=== PATIENT | female | born 1975 | race Caucasian/White ===

== ENCOUNTER 2017-10-18 12:59 | Emergency (ER) | payer OTHER ==
[~2017-10-18] VITALS: Ht 182.9 cm; Wt 72.6 kg
[2017-10-18] MEDS ORDERED: IBUPROFEN600 MG PO (14:13)
== END 2017-10-18 14:36 | disposition home or self-care (01) ==
LOC: ED 12:59
DX: S90.32XA Contusion of left foot, initial encounter (principal); S80.02XA Contusion of left knee, initial encounter; V43.52XA Car driver injured in collision with other type car in traffic accident, initial encounter
CPT/HCPCS: 73560; 73630; 99283

== ENCOUNTER 2020-04-15 19:54 | Emergency (ER) | payer OTHER ==
[~2020-04-15] VITALS: Ht 182.9 cm; Wt 79.8 kg
[~2020-04-15 19:54] MED LIST: IBUPROFEN600 MG PO
--- OUTSIDE RECORDS SUMMARY | 2020-04-15 19:56 | XMS ---
PreManage Notification: PRISCILLA CARRERO Security [employer] Events No recent Security Events currently on file CRITERIA MET - Group Notification CARE PROVIDERS There are no care providers on record at this time. Kelly has no Care Guidelines for this patient. Teena VISIT COUNT (12 MO.) 1 JOHNY Bae TOTAL 1 NOTE: Visits indicate total known visits. ED/UCC VISIT TRACKING (12 MO.) 04/15/2020 19:55 JOHNY Jacobs [place] TYPE: Emergency COMPLAINT: - POSS BROKEN FINGER INPATIENT VISIT TRACKING (12 MO.) No inpatient visits to display in this time frame [email or web address]
[2020-04-15] MEDS ORDERED: NORCO 5-325 TA1 EACH PO (20:36)
== END 2020-04-15 21:07 | disposition home or self-care (01) ==
LOC: ED 19:54
PROC: 0RSWXZZ Reposition Right Finger Phalangeal Joint, External Approach (ICD-10-PCS; principal; 2020-04-15)
DX: S63.280A Dislocation of proximal interphalangeal joint of right index finger, initial encounter (principal); S61.210A Laceration without foreign body of right index finger without damage to nail, initial encounter; W01.0XXA Fall on same level from slipping, tripping and stumbling without subsequent striking against object, initial encounter
CPT/HCPCS: 26770; 73140; 99283-25